=== PATIENT | female | born 1960 | race Caucasian/White ===

== ENCOUNTER 2025-09-11 16:02 | Emergency (ER) | payer OTHER ==
[~2025-09-11] VITALS: Ht 167.6 cm; Wt 60.0 kg
[2025-09-11 16:07] VITALS: O2SAT 99
[2025-09-11 16:11] VITALS: BP 155/86; PULSE 89; RESP 20; TEMP 36.6; O2SAT 98
== END 2025-09-11 17:40 | disposition home or self-care (01) ==
LOC: ER 16:02
DX: S00.93XA Contusion of unspecified part of head, initial encounter (principal); I10 Essential (primary) hypertension; Z85.828 Personal history of other malignant neoplasm of skin; V18.4XXA Pedal cycle driver injured in noncollision transport accident in traffic accident, initial encounter; Y93.55 Activity, bike riding; Y92.89 Other specified places as the place of occurrence of the external cause; Y99.8 Other external cause status
CPT/HCPCS: 99284